=== PATIENT | male | born 1995 ===

== ENCOUNTER 2024-10-15 09:10 | Day surgery (SDC) | payer OTHER ==
[~2024-10-15] VITALS: Ht 185.4 cm; Wt 166.2 kg
[~2024-10-15 09:10] MED LIST: LISI20 PO; Lidocaine 2%-Epineph 1:100000 20 ML MDV ONE; Midazolam HCl 1MG / ML 2ML Vial IV ONE
[2024-10-15 09:32] VITALS: BP 151/92
--- NOTE | 2024-10-15 09:50 | NUR ---
Ambulatory in Day Surgery. History, Chart, Medications and Allergies reviewed before start of procedure. Lungs clear T/O to Auscultation. Patient confirms NPO status and agrees with scheduled surgery. Pre-Op teaching done. Pt verbalizes understanding. Patient States Post-Procedure ride home has been arranged. PT BELONGINGS PLACED UNDERNEATH GURNEY FOR SAFEKEEPING. PT GLASSES TAKEN TO PACU FOR SAFEKEEPING.
[2024-10-15] MEDS ORDERED: FentaNYL Citrate 50 MCG/ML 2 ML Injection ONE (10:31)
[2024-10-15] MEDS ORDERED: Midazolam HCl 1MG / ML 2ML Vial ONE (10:32)
[2024-10-15] MEDS ORDERED: Dexamethasone Sod Phos 10 MG/ML 1ML VIAL ONE (10:33)
[2024-10-15] MEDS ORDERED: Ondansetron HCl 2 MG / ML 2ML Vial ONE (10:33)
[2024-10-15] MEDS ORDERED: Midazolam HCl 1MG / ML 2ML Vial IV ONE (11:20)
--- NOTE | 2024-10-15 11:24 | NUR ---
1118: Dr. Rendon at bedside to perform preop nerve block. Timeout complete by RN. Premeds given by this RN, see EMAR. 1119: Block time start. 1125: Block time end. V/S monitored and stable throughout procedure. Pt ronna procedure well.
[2024-10-15] MEDS ORDERED: Ketorolac Tromethamine 30mg Vial ONE (11:37)
[2024-10-15] MEDS ORDERED: Albuterol 2.5 MG/3 ML VIAL INH PRN (11:45)
[2024-10-15] MEDS ORDERED: Metoclopramide HCl 5MG / ML 2ML Vial IV PRN (11:45)
[2024-10-15] MEDS ORDERED: Ondansetron HCl 2 MG / ML 2ML Vial IV PRN (11:45)
[2024-10-15] MEDS ORDERED: FentaNYL Citrate 50 MCG/ML 2 ML Injection IV PRN (11:45)
[2024-10-15] MEDS ORDERED: HYDROmorphone HCl/Pf 1MG SYR IV PRN (11:45)
[2024-10-15] MEDS ORDERED: Morphine Sulfate 4 MG/1 ML Injection IV PRN (11:50)
[2024-10-15 12:04] VITALS: BP 132/80
[2024-10-15 12:14] VITALS: BP 137/77
--- NOTE | 2024-10-15 12:25 | NUR ---
Patient up to Ambulate independently. Gait steady. VSS AND CONSISTENT WITH PT BASELINE. Discharge instructions reviewed with patient. Patient verbalizes understanding. Copy given to patient to take home. Dressing to procedure site clean, dry, intact with no visible drainage, swelling, erythema or bruising noted. Discharged via wheelchair to private car for ride home. PT BELONGINGS RETURNED TO PT.
== END 2024-10-15 23:00 | disposition home or self-care (01) ==
LOC: ORSCMMR 09:10 → ORD 10:30 → ORSCMMR 10:30
PROVIDERS: Orthopaedic Surgery
PROC: 01N54ZZ Release Median Nerve, Percutaneous Endoscopic Approach (ICD-10-PCS; principal; 2024-10-15 11:30)
DX: G56.01 Carpal tunnel syndrome, right upper limb (principal); I10 Essential (primary) hypertension; G47.33 Obstructive sleep apnea (adult) (pediatric); Z79.899 Other long term (current) drug therapy
CPT/HCPCS: J1100; J1885; J2250; J2405; J2704; J3010; J7120

== ENCOUNTER 2024-10-25 19:13 | Emergency (ER) | payer OTHER ==
[~2024-10-25] VITALS: Ht 185.4 cm; Wt 163.3 kg
[~2024-10-25 19:13] MED LIST changes: -Lidocaine 2%-Epineph 1:100000 20 ML MDV ONE; -Midazolam HCl 1MG / ML 2ML Vial IV ONE
[2024-10-25 19:52] VITALS: BP 145/108
[2024-10-25 20:31] LABS: BASOPHILS ABSOLUTE AUTO 0.03 K/mm3 (0.00-0.23); BASOPHILS PERCENT AUTO 1 % (0-2); EOSINOPHILS ABSOLUTE AUTO 0.28 K/mm3 (0.00-0.68); EOSINOPHILS PERCENT AUTO 4 % (0-6); Hematocrit 50.6 % (37.0-53.0); Hemoglobin 17.5 g/dL (13.5-17.5); IMMATURE GRAN ABSOLUTE AUTO 0.02 K/mm3 (0.00-0.10); IMMATURE GRAN PERCENT AUTO 0 % (0-1); LYMPHOCYTES ABSOLUTE AUTO 1.93 K/mm3 (0.84-5.20); LYMPHOCYTES PERCENT AUTO 30 % (21-46); MONOCYTES ABSOLUTE AUTO 0.53 K/mm3 (0.16-1.47); MONOCYTES PERCENT AUTO 8 % (4-13); Mean Corpuscular HGB Conc 34.6 g/dL (31.5-36.5); Mean Corpuscular Volume 85 fL (80-100); NEUTROPHILS ABSOLUTE AUTO 3.75 K/mm3 (1.96-9.15); NEUTROPHILS PERCENT AUTO 57 % (41-73); NRBC ABSOLUTE 0.00 K/mm3 (0.00-0.02); NRBC Auto 0.0 /100 WBC (0.0-0.2); Platelet Count 248 K/mm3 (150-400); RDW Coefficient Variation 13.0 % (11.7-14.2); RDW Standard Deviation 40.3 fL (35.1-46.3)
[2024-10-25 20:49] LABS: Alanine Aminotransfer (ALT/SGP 167.0 U/L (12-78); Albumin, Blood 3.8 g/dL (3.4-5.0); Albumin/Globulin Ratio 0.9 (0.8-1.8); Anion Gap 9.0 mmol/L (3-11); Aspartate Aminotrans (AST/SGOT 70.0 U/L (12-37); Bilirubin, Total 0.3 mg/dL (0.1-1.0); Blood Urea Nitrogen 12.0 mg/dL (8-24); CO2, Blood 26.0 mmol/L (21-32); Calcium, Blood 9.0 mg/dL (8.5-10.1); Chloride, Blood 104.0 mmol/L (98-108); Creatinine, Blood 0.72 mg/dL (0.60-1.20); Globulin, Blood 4.1 g/dL (2.2-4.0); Glucose, Blood 197.0 mg/dL (70-99); Potassium, Blood 3.9 mmol/L (3.5-5.5); Sodium, Blood 135.0 mmol/L (136-145); Total Protein, Blood 7.9 g/dL (6.4-8.2)
[2024-10-25] MEDS ORDERED: Tessalon200 MG PO (22:29)
== END 2024-10-25 22:34 | disposition home or self-care (01) ==
LOC: ER 19:13
PROVIDERS: Student in an Organized Health Care Education/Training Program
DX: R51.9 Headache, unspecified (principal); R05.9 Cough, unspecified; I10 Essential (primary) hypertension; Z79.899 Other long term (current) drug therapy
CPT/HCPCS: 71046; 80053; 85025; 99284-25